=== PATIENT | male | born 1960 | race Caucasian/White ===

== ENCOUNTER → 2023-09-14 | Day surgery (SDC) | payer MEDICARE, OTHER | LOC: CSHSDC 10:32 | PROVIDERS: ATTEND Specialist | DX: I48.19 Other persistent atrial fibrillation (principal); I48.92 Unspecified atrial flutter; E66.01 Morbid (severe) obesity due to excess calories; Z68.42 Body mass index [BMI] 45.0-49.9, adult; Z53.8 Procedure and treatment not carried out for other reasons | CPT/HCPCS: 93005; 93010 ==